=== PATIENT | female | born 2005 | race Caucasian/White ===

== ENCOUNTER → 2025-01-26 | Outpatient (CLI) | payer BC, SELFPAY ==
[2025-01-26 13:45] LABS: Anion Gap 9 (7-16); BUN/Creatinine Ratio 10 Ratio (12-20); Blood Urea Nitrogen 8 mg/dL (9-23); Calcium 10.3 mg/dL (8.3-10.6); Carbon Dioxide 27.2 mMol/L (20.0-31.0); Chloride 104 mMol/L (98-107); Creatinine (Component) 0.8 mg/dL (0.6-1.3); Glucose 105 mg/dL (74-106); Osmolality,Calculated 277 (275-295); Potassium 4.6 mMol/L (3.4-5.1); Sodium 140 mMol/L (136-145); eGFR > 60 See Note
== END | disposition home or self-care (01) ==
LOC: COPL 12:42
PROVIDERS: PCP Family Medicine
DX: L70.0 Acne vulgaris (principal)
CPT/HCPCS: 36415; 80048